=== PATIENT | female | born 1990 | race Two or more races ===

== ENCOUNTER 2020-02-01 06:29 | Emergency (ER) | payer MEDICAID ==
[~2020-02-01] VITALS: Ht 160 cm; Wt 65.8 kg
[2020-02-01 06:53] VITALS: Ht 160 cm; Wt 65.8 kg
[2020-02-01 07:46] LABS: CALCIUM 8.5 mg/dL (8.5-10.1); CARBON DIOXIDE 25.3 mmol/L (21-32); CHLORIDE SERUM 108 mmol/L (98-107); CREATININE SERUM 0.7 mg/dL (0.6-1.0); GFR1 > 60 mL/min; GLUCOSE SERUM 88 mg/dL (74-106); POTASSIUM SERUM 4.1 mmol/L (3.5-5.1); SODIUM SERUM 141 mmol/L (136-145)
[2020-02-01 07:51] LABS: ALBUMIN 3.7 g/dL (3.4-5.0); ALKALINE PHOSPHATASE 53 U/L (46-116); ALT/SGPT 39 U/L (14-59); AST/SGOT 21 U/L (15-37); BILIRUBIN TOTAL 0.18 mg/dL (0.20-1.00); CHOLESTEROL 199 mg/dL (<200); LIPASE 180 IU/L (73-393); TOTAL PROTEIN, SERUM 6.7 g/dL (6.4-8.2); TRIGLYCERIDES 61 mg/dL (<150)
[2020-02-01 07:55] LABS: CHOLESTEROL/HDL RATIO 2.4; HDL CHOLESTEROL 84 mg/dL (40-60)
[2020-02-01 08:01] LABS: FREE T4 0.73 ng/dL (0.76-1.46); FREE THYROXINE INDEX 2.2 ug/dL (1.4-4.5); T4(THYROXINE) 6.7 ug/dL (4.7-13.3)
[2020-02-01 08:12] LABS: microscopic required? NO
[2020-02-01 08:18] VITALS: BP 102/57
[2020-02-01 08:25] LABS: UA SPECIFIC GRAVITY >=1.030 (1.005-1.035); urine erythrocyte NEGATIVE (NEGATIVE)
[2020-02-01 08:31] LABS: T3 TOTAL 1.3 ng/mL
[2020-02-01 09:05] LABS: BASOPHIL % 0.7 % (0-2); PLATELET COUNT 302 x10^3mcL (130-400); RED CELL DISTRIBUTION WIDTH 14.8 % (11.5-14.5)
== END 2020-02-01 09:24 | disposition home or self-care (01) ==
LOC: ED 06:29
PROVIDERS: Specialist
DX: R07.89 Other chest pain (principal); R05 Cough
CPT/HCPCS: 36415; 83880; 84439; Q0092